=== PATIENT | male | born 1985 | race African-American/Black ===

== ENCOUNTER 2016-12-02 23:41 | Emergency (ER) | payer OTHER ==
[~2016-12-02] VITALS: Ht 175.3 cm; Wt 107.0 kg
[2016-12-03 01:10] LABS: HEMATOCRIT 45.7 % (38.0-50.0); MCH 26.9 PG (29.0-34.0); MCHC 31.7 G/DL (30.0-36.0); MCV 84.8 FL (86-99); MEAN PLAT.VOLUME 10.1 uM^3 (9.0-12.4); PLATELET COUNT 265 K/uL (156-360); RBC DIS.WIDTH-CV 12.9 % (11.8-14.6); RBC DIS.WIDTH-SD 39.3 % (39-53); RED BLOOD COUNT 5.39 M/uL (4.00-5.50); WHITE BLOOD COUNT 12.7 K/uL (4.1-10.2)
[2016-12-03 01:23] LABS: CHLORIDE 107 mEq/L (99-109); POTASSIUM 4.3 mEq/L (3.7-5.4); SODIUM 141 mEq/L (136-147)
[2016-12-03 01:25] LABS: GLUCOSE 105 mg/dL (70-99)
[2016-12-03 01:26] LABS: ANION GAP 9 MEQ/L (2-14)
[2016-12-03 01:29] LABS: GFR ESTIMATE (CALCULATED) > 59 mL/min/
[2016-12-03 01:30] LABS: UREA NITROGEN (BUN) 16 mg/dL (9-23)
[2016-12-03] MEDS ORDERED: MECLIZINE HCL25 MG PO (01:56)
[2016-12-03] MEDS ORDERED: ZOFRAN4 MG PO (01:57)
[2016-12-03] MEDS ORDERED: VALIUM5 MG PO (01:57)
[2016-12-03 02:26] VITALS: BP 168/88
== END 2016-12-03 02:28 | disposition home or self-care (01) ==
LOC: EME 23:41
PROVIDERS: Physician Assistant
DX: H81.399 Other peripheral vertigo, unspecified ear (principal); R03.0 Elevated blood-pressure reading, without diagnosis of hypertension
CPT/HCPCS: 80048; 85027; 93005; 99281; 99284